=== PATIENT | male | born 1965 | race Asian ===

== ENCOUNTER → 2020-12-15 | Outpatient (CLI) | payer OTHER ==
[2020-12-16 04:06] LABS: RUBELLA AB IGG-REFLAB 4.07 index (Immune >0.99)
[2020-12-16 05:07] LABS: RUBEOLA (MEASLES) IGG 38.7 AU/mL (Immune >16.4)
== END | disposition home or self-care (01) ==
LOC: LABPV 11:14
PROVIDERS: ATTEND Internal Medicine
DX: Z02.1 Encounter for pre-employment examination (principal)
CPT/HCPCS: 86706; 86735; 86762; 86765; 86787